=== PATIENT | male | born 1950 | race Caucasian/White ===

== ENCOUNTER → 2016-05-14 | Outpatient (CLI) | payer OTHER ==
--- NOTE | 2016-05-14 12:39 | DX ---
Wrist Minimum of 3 Views, Left History: M25.531 Wrist pain. Comparison: None. Findings: No acute fracture or dislocation identified. No destructive osseous lesions. No significant joint space narrowings, osteophytes, or evidence of cystic erosions. Ulnar plus variant. Impression: 1. No definite acute fracture. 2. Ulnar plus variant. 3. No definite degenerative or inflammatory arthropathy.
--- NOTE | 2016-05-14 18:11 | DX ---
Right Wrist, 3 views History: Pain without trauma 2-3 weeks. Findings: Carpal alignment and mineralization are normal. The distal radial ulnar joint appears mildl y widened. There is a degenerative cyst in the triquetrum. The only narrowed joint space is the secon d metacarpal phalangeal joint consistent with osteoarthritis. On the lateral view, there is either a congenitally ununited apophysis or old ununited fracture fragment involving the base of the dorsal th ird metacarpal. A punctate density adjacent to the radial styloid tip is consistent with a remote pos ttraumatic or degenerative calcification/ossification. There is no significant spurring or erosive ch flavio. Impression: Minimal degenerative and/or posttraumatic change described above.
== END ==
LOC: BMCIMAGING 10:34
PROVIDERS: ATTEND Internal Medicine
DX: M25.531 Pain in right wrist (principal); M25.532 Pain in left wrist